=== PATIENT | male | born 1975 | race Caucasian/White ===

== ENCOUNTER 2016-10-03 02:56 | Inpatient (IN) | payer MEDICAID, OTHER ==
[~2016-10-03] VITALS: Ht 172.7 cm; Wt 76.1 kg
[2016-10-03] MEDS ORDERED: CEFTRIAXONE 1 GM/50 ML (PMX) 50 ML IVPB STA (02:57)
[2016-10-03] MEDS ORDERED: PANTOPRAZOLE IV 80 MG in SOD CHLORIDE 0.9% 100 ML IV STA (02:57)
[2016-10-03] MEDS ORDERED: ONDANSETRON INJ 8 MG in DEXTROSE 5% 50 ML IVPB STA (02:57)
[2016-10-03] MEDS ORDERED: SOD CHLORIDE 0.9% 1,000 ML IV STA (02:57)
[2016-10-03] MEDS ORDERED: OCTREOTIDE 50 MCG in SOD CHLORIDE 0.9% 25 ML IVPB STA (02:57)
[2016-10-03] MEDS ORDERED: PANTOPRAZOLE IV 80 MG in SOD CHLORIDE 0.9% 100 ML IVPB STA (02:57)
[2016-10-03] MEDS ORDERED: OCTREOTIDE 500 MCG in SOD CHLORIDE 0.9% 49 ML IV STA (02:57)
[2016-10-03] MEDS ORDERED: LORAZEPAM 2 MG INJ ONE (03:13)
[2016-10-03 03:23] LABS: ADD SCAN DIFF NO
[2016-10-03 03:25] LABS: BASOPHIL # 0.1 10^3/ul (0.0-0.1); BASOPHILS % 0.6 % (0.0-2.0); EOSINOPHILS % 0.2 % (0.0-7.0); LYMPHOCYTES # 3.9 10^3/ul (0.8-2.9); LYMPHOCYTES % 36.2 % (15.0-51.0); MEAN CORPUSCULAR HEMOGLOBIN 28.6 pg (29.0-33.0); MEAN CORPUSCULAR HGB CONC 34.3 g/dl (32.0-37.0); MEAN CORPUSCULAR VOLUME 83.3 fl (82.0-101.0); MEAN PLATELET VOLUME 9.6 fl (7.4-10.4); MONOCYTE # 0.6 10^3/ul (0.3-0.9); MONOCYTES % 5.6 % (0.0-11.0); NEUTROPHIL # 6.1 10^3/ul (1.6-7.5); NEUTROPHILS % 57.1 % (39.0-77.0); PLATELET COUNT 193 10^3/UL (140-415); RED CELL DISTRIBUTION WIDTH 20.2 % (11.5-14.5); WHITE BLOOD COUNT 10.6 10^3/ul (4.8-10.8)
[2016-10-03] MEDS ORDERED: LORAZEPAM 2 MG INJ IV ONE ×2 (03:30)
[2016-10-03 03:42] LABS: INR 1.01; PROTIME 13.3 Sec (12.2-14.2)
[2016-10-03 03:47] LABS: ALANINE AMINOTRANSFERASE 29 IU/L (13-69); ALBUMIN 4.3 g/dl (3.3-4.9); ALBUMIN/GLOBULIN RATIO 1.26; ALKALINE PHOSPHATASE 96 IU/L (42-121); ANION GAP 30 (8-16); ASPARTATE AMINO TRANSFERASE 51 IU/L (15-46); BILIRUBIN,INDIRECT 0.4 mg/dl (0-1.1); BILIRUBIN,TOTAL 0.4 mg/dl (0.2-1.3); BLOOD UREA NITROGEN 14 mg/dl (7-20); CALCIUM 8.6 mg/dl (8.4-10.2); CARBON DIOXIDE 19 mmol/L (21-31); CHLORIDE 98 mmol/L (97-110); CREATININE 0.83 mg/dl (0.61-1.24); GLUCOSE 123 mg/dl (70-220); POTASSIUM 3.4 mmol/L (3.5-5.1); SODIUM 144 mmol/L (135-144); TOTAL PROTEIN 7.7 g/dl (6.1-8.1)
[2016-10-03 03:59] LABS: TROPONIN-I < 0.012 ng/ml (0.00-0.12)
[2016-10-03 04:42] LABS: PARTIAL THROMBOPLASTIN TIME 28.7 Sec (25.0-35.0)
--- NOTE | 2016-10-03 04:46 | RADRPT ---
PROCEDURE: Chest. CLINICAL INDICATION: Chest pain. TECHNIQUE: Single frontal view of the chest was obtained. COMPARISON: None. FINDINGS: The cardiac silhouette is within normal limits. The aortic arch is unremarkable. There is no focal consolidation, vascular congestion or pleural effusion. There is no pneumothorax. IMPRESSION: No evidence for active cardiopulmonary disease. .Jessee Pereira MD, MD Date Time Electronically viewed and signed by .Jessee Pereira MD, on 10/03/2016 04:46 .T/
--- NOTE | 2016-10-03 05:46 | ERA ---
ER Documentation Chief Complaint Date/Time DATE: 10/03/16 TIME: 05:42 Chief Complaint bloody emesis x "all day", pt states heavy alcoholic and last drink 2200 HPI vomitting blood today.admiyts to ETOH use and previous variceal bleeding ROS All systems reviewed and are negative except as per history of present illness. Medications Home Meds No Active Prescriptions or Reported Meds Allergies Allergies: Coded Allergies: No Known Allergy (Unverified , 10/03/16) PMhx/Soc Medical and Surgical Hx: pt denies Surgical Hx History of Surgery: No Anesthesia Reaction: No Hx Neurological Disorder: No Hx Respiratory Disorders: No Hx Cardiac Disorders: No Hx Psychiatric Problems: Yes (anxiety) Hx Miscellaneous Medical Probl: No Hx Alcohol Use: Yes Hx Substance Use: Yes (marijuana) Hx Tobacco Use: Yes Smoking Status: Current every day smoker Physical Exam Vitals Vital Signs Date Time Temp Pulse Resp B/P Pulse Ox O2 Delivery O2 Flow Rate FiO2 10/03/16 04:46 86 13 115/60 99 Nasal Cannula 2.0 10/03/16 04:00 75 17 118/73 100 Nasal Cannula 2.0 10/03/16 03:48 Nasal Cannula 2 10/03/16 03:48 81 12 116/75 100 Nasal Cannula 2.0 10/03/16 03:11 98.3 89 26 145/101 100 Physical Exam Const: [] Head: Atraumatic Eyes: Normal Conjunctiva ENT: Normal External Ears, Nose and Mouth. Neck: Full range of motion..~ No meningismus. Resp: Clear to auscultation bilaterally Cardio: Regular rate and rhythm, no murmurs Abd: Soft, non tender, non distended. Normal bowel sounds Skin: No petechiae or rashes Back: No midline or flank tenderness Ext: No cyanosis, or edema Neur: Awake and alert Psych: Normal Mood and Affect Result Diagram: 10/03/16 0310 10/03/16 0310 Results 24 hrs Laboratory Tests Test 10/03/16 03:10 White Blood Count 10.610^3/ul Red Blood Count 4.2010^6/ul Hemoglobin 12.0g/dl Hematocrit 35.0% Mean Corpuscular Volume 83.3fl Mean Corpuscular Hemoglobin 28.6pg Mean Corpuscular Hemoglobin Concent 34.3g/dl Red Cell Distribution Width 20.2% Platelet Count 21360^3/UL Mean Platelet Volume 9.6fl Neutrophils % 57.1% Lymphocytes % 36.2% Monocytes % 5.6% Eosinophils % 0.2% Basophils % 0.6% Nucleated Red Blood Cells % 0.0/100WBC Neutrophils # 6.110^3/ul Lymphocytes # 3.910^3/ul Monocytes # 0.610^3/ul Eosinophils # 0.010^3/ul Basophils # 0.110^3/ul Nucleated Red Blood Cells # 0.010^3/ul Prothrombin Time 13.3Sec Prothrombin Time Ratio 1.0 INR International Normalized Ratio 1.01 Activated Partial Thromboplast Time 28.7Sec Sodium Level 144mmol/L Potassium Level 3.4mmol/L Chloride Level 98mmol/L Carbon Dioxide Level 19mmol/L Anion Gap 30 Blood Urea Nitrogen 14mg/dl Creatinine 0.83mg/dl Glucose Level 123mg/dl Calcium Level 8.6mg/dl Total Bilirubin 0.4mg/dl Direct Bilirubin 0.00mg/dl Indirect Bilirubin 0.4mg/dl Aspartate Amino Transf (AST/SGOT) 51IU/L Alanine Aminotransferase (ALT/SGPT) 29IU/L Alkaline Phosphatase 96IU/L Troponin I < 0.012ng/ml Total Protein 7.7g/dl Albumin 4.3g/dl Globulin 3.40g/dl Albumin/Globulin Ratio 1.26 Lipase 395U/L Current Medications Medications (Trade) Dose Ordered Sig/Benita Route PRN Reason Start Time Stop Time Status Last Admin Dose Admin Sodium Chloride 1,000 ml @ 1,000 mls/hr Q1H STAT IV 10/03/16 02:57 10/03/16 03:56 DC 10/03/16 03:18 Pantoprazole 80 mg/Sodium Chloride 100 ml @ 400 mls/hr ONCE STAT IVPB 10/03/16 02:57 10/03/16 03:11 DC 10/03/16 03:43 Pantoprazole 80 mg/Sodium Chloride 100 ml @ 10 mls/hr ONCE STAT IV 10/03/16 02:57 10/03/16 12:56 10/03/16 04:01 Octreotide Acetate 50 mcg/ Sodium Chloride 26 ml @ 100 mls/hr Q16M STAT IVPB 10/03/16 02:57 10/03/16 03:12 DC 10/03/16 04:00 Octreotide Acetate 500 mcg/ Sodium Chloride 50 ml @ 5 mls/hr ONCE STAT IV 10/03/16 02:57 10/03/16 12:56 10/03/16 04:17 Ondansetron HCl 8 mg/Dextrose 54 ml @ 200 mls/hr ONCE STAT IVPB 10/03/16 02:57 10/03/16 03:13 DC 10/03/16 03:38 Ceftriaxone Sodium (Rocephin) 50 ml @ 100 mls/hr ONCE STAT IVPB 10/03/16 02:57 10/03/16 03:26 DC 10/03/16 03:39 Lorazepam (Ativan) 1 mg ONCE ONCE IV 10/03/16 03:30 10/03/16 03:31 DC 10/03/16 03:18 Lorazepam (Ativan) 2 mg STK-MED ONCE .ROUTE 10/03/16 03:13 10/03/16 03:14 DC Lorazepam (Ativan) 1 mg ONCE ONCE IV 10/03/16 03:30 10/03/16 03:31 DC 10/03/16 03:18 Procedures/MDM EKG: Rate/Rhythm: [Normal Sinus Rhythm] QRS, ST, T-waves: [No changes consistent w/ acute ischemia] Impression: [No evidence of ischemia or arrhythmia] Chest X-ray 1V Interpreted by me: Soft Tissue: No acute abnormalities Bones: No acute abnormalities Mediastinum/Cardiac Silhouette/Lungs: [No acute abnormalities] Medical decision-makin-year-old male hematemesis likely secondary to variceal bleeding. Start Protonix and octreotide drip. At this point clinically stable for outpatient management. Admitted to telemetry Departure Diagnosis: Primary Impression: Hematemesis Qualified Code: K92.0 - Hematemesis with nausea Condition: Serious CELENA FULLER Oct 03, 2016 05:46
[2016-10-03] MEDS ORDERED: morphine 2 MG INJ IV PRN (07:30)
[2016-10-03] MEDS ORDERED: NACL 0.9% 3 ML SYG IV SCH (07:30)
[2016-10-03] MEDS: PANTOPRAZOLE 40 MG INJ IV SCH ×2 (09:00→20:14)
[2016-10-03] MEDS: DEXTROSE 5%-0.45% NACL 1,000 ML IV SCH ×2 (12:13→23:07)
[2016-10-03] MEDS: LORAZEPAM 2 MG INJ IV PRN ×5 (13:22→22:59)
--- NOTE | 2016-10-03 16:23 | PN ---
Date/Time of Note Date/Time of Note DATE: 10/03/16 TIME: 16:20 Assessment/Plan VTE Prophylaxis VTE Prophylaxis Intervention: SCD's Assessment/Plan Chief Complaint/Hosp Course Assessment and plan 1. Hematemesis. Likely secondary to alcohol abuse. Patient on octreotide as well as Protonix. N.p.o. for now. Explosives Operator consulted. Follow up with recommendations. Placed on Ativan as needed for DT and placed on banana bag 2. Alcohol abuse. Cessation was advised. Will get director social to follow. 3. Anemia secondary to #1. Will monitor H&H and transfuse PRBC as needed 4. Hypokalemia. Monitor and replete as needed 5. Home status. Will get director social to follow. Discussed plan of care with Dr. Warren Problems: Subjective 24 Hr Interval Summary Free Text/Dictation No further reports of hematemesis. No reports of hemoptysis. Exam/Review of Systems Vital Signs Vitals Vital Signs Date Time Temp Pulse Resp B/P Pulse Ox O2 Delivery O2 Flow Rate FiO2 10/03/16 16:00 65 22 110/69 100 Nasal Cannula 2.0 10/03/16 14:00 97.7 Exam Constitutional: alert, oriented Psych: No anxiety Head: normocephalic Respiratory: clear to auscultation Cardiovascular: regular rate and rhythm Gastrointestinal: non-tender, soft Musculoskeletal: nl extremities to inspection Neurological: BATTERYMAN II-XII intact, nl mental status, nl speech Results Result Diagram: 10/03/16 0310 10/03/16 0310 Results 24 hrs Laboratory Tests Test 10/03/16 03:10 White Blood Count 10.6 Red Blood Count 4.20 L Hemoglobin 12.0 L Hematocrit 35.0 L Mean Corpuscular Volume 83.3 Mean Corpuscular Hemoglobin 28.6 L Mean Corpuscular Hemoglobin Concent 34.3 Red Cell Distribution Width 20.2 H Platelet Count 193 Mean Platelet Volume 9.6 Neutrophils % 57.1 Lymphocytes % 36.2 Monocytes % 5.6 Eosinophils % 0.2 Basophils % 0.6 Nucleated Red Blood Cells % 0.0 Neutrophils # 6.1 Lymphocytes # 3.9 H Monocytes # 0.6 Eosinophils # 0.0 Basophils # 0.1 Nucleated Red Blood Cells # 0.0 Prothrombin Time 13.3 Prothrombin Time Ratio 1.0 INR International Normalized Ratio 1.01 Activated Partial Thromboplast Time 28.7 Sodium Level 144 Potassium Level 3.4 L Chloride Level 98 Carbon Dioxide Level 19 L Anion Gap 30 H Blood Urea Nitrogen 14 Creatinine 0.83 Glucose Level 123 Calcium Level 8.6 Total Bilirubin 0.4 Direct Bilirubin 0.00 Indirect Bilirubin 0.4 Aspartate Amino Transf (AST/SGOT) 51 H Alanine Aminotransferase (ALT/SGPT) 29 Alkaline Phosphatase 96 Troponin I < 0.012 Total Protein 7.7 Albumin 4.3 Globulin 3.40 H Albumin/Globulin Ratio 1.26 Lipase 395 H Medications Medications Current Medications Dextrose/Sodium Chloride (D5-1/2ns) 1,000 ml @ 100 mls/hr Q10H IV Last administered on 10/03/16 12:13; Admin Dose 100 MLS/HR; Start 10/03/16 at 07:10 Morphine Sulfate (morphine) 2 mg Q4H PRN IV SEVERE PAIN LEVEL 7-10; Start 10/03 at 07:30 Pantoprazole (Protonix Iv) 40 mg 18 IV ; Start 10/03/16 at 09:00 Lorazepam 1 mg 1 mg Q1H PRN IV anxiety Last administered on 10/03/16 14:44; Admin Dose 1 MG; Start 10/03/16 at 07:30 Multivitamins/ Thiamine HCl/ Folic Acid/Sodium Chloride (Mvi Adult/ Vitamin B1/ Folic Acid/NS) 1,011.2 ml @ 125 mls/ hr DAILY@09 IVPB ; Start 10/04/16 at 09:00 MYESHA PEREZ Oct 03, 2016 16:23
[2016-10-03 16:48] LABS: ADD UMIC NO; UR ASCORBIC ACID 20 mg/dL (NEGATIVE); UR BILIRUBIN (Dip) NEGATIVE (NEGATIVE); UR BLOOD (Dip) NEGATIVE (NEGATIVE); UR CLARITY CLEAR (CLEAR); UR COLOR YELLOW (YELLOW); UR GLUCOSE (Dip) NEGATIVE (NEGATIVE); UR KETONES (Dip) 2+ mg/dL (NEGATIVE); UR LEUKOCYTE ESTERASE (Dip) NEGATIVE Leu/ul (NEGATIVE); UR NITRITE (Dip) NEGATIVE (NEGATIVE); UR SPECIFIC GRAVITY (Dip) 1.017 (1.003-1.030); UR TOTAL PROTEIN (Dip) NEGATIVE (NEGATIVE); UR UROBILINOGEN (Dip) NEGATIVE (NEGATIVE)
--- NOTE | 2016-10-03 17:03 | CONS ---
Date/Time of Note Date/Time of Note DATE: 10/03/16 TIME: 16:53 Assessment/Plan Assessment/Plan Additional Assessment/Plan Assessment * Hematemesis Bleeding esophageal varices vs peptic ulcer disease * Chronic alcoholism Plan * EGD tomorrow risks and benefit explained to patient and agreed with the planned procedure * PPI 40 mg BID * continue present management * monitor hemoglobin and hematocrit Q 6 and transfuse per protocol Consultation Date/Type/Reason Admit Date/Time Date of Consultation: Oct 03, 2016 Type of Consultation: Gastroenterology Reason for Consultation hematemesis Referring Provider: MYESHA PEREZ Hx of Present Illness 41 year old male who came to emergency room because of hematemesis.Patient had been drinking vodka heavily for the past 2 weeks when he had hematemesis x 2 about 15 ml per episode.He denies any abdominal pain,hematochezia,chest pain nor shortness of breath Hematemesis prompted consult at the ER,Hemoglobin revealed 12 and hematocrit of 35,Chest x ray No evidence for active cardiopulmonary disease..AST 51,ALT 29.alkaline phosphatase 96,troponin < 0.012.Lipase 395 Presently patient denies any hematemesis nor abdominal pain Constitutional: improved, no complaints Eyes: no complaints ENT: no complaints Respiratory: no complaints Cardiovascular: no complaints Gastrointestinal: blood Genitourinary: no complaints Musculoskeletal: no complaints Skin: no complaints Neurologic: no complaints Endocrine: no complaints Lymphatic: no complaints Psychological: No anxiety Immunologic: no complaints Past Medical History Medical History: no pertinent history Past Surgical History Past Surgical Hx: no surgical history Social History Alcohol Use: heavy Smoking Status: Current every day smoker Exam/Review of Systems Vital Signs Vitals Vital Signs Date Time Temp Pulse Resp B/P Pulse Ox O2 Delivery O2 Flow Rate FiO2 10/03/16 16:00 65 22 110/69 100 Nasal Cannula 2.0 10/03/16 14:00 97.7 Exam Constitutional: alert, oriented, well developed Psych: nl mood/affect, no complaints Head: atraumatic, normocephalic Eyes: EOMI, PERRL, nl conjunctiva, nl lids, nl sclera ENMT: nl external ears & nose, nl lips & teeth, nl nasal mucosa & septum Neck: non-tender, supple Respiratory: clear to auscultation, normal air movement Cardiovascular: nl pulses, regular rate and rhythm Gastrointestinal: nl liver, spleen, non-tender, soft Musculoskeletal: nl extremities to inspection, nl gait and stance Extremities: normal pulses Neurological: nl mental status, nl speech, nl strength Skin: nl turgor, No rash or lesions Lymph: nl lymph nodes Results Result Diagram: 10/03/16 0310 10/03/16 0310 Results 24 hrs Laboratory Tests Test 10/03/16 03:10 10/03/16 16:30 White Blood Count 10.6 Red Blood Count 4.20 L Hemoglobin 12.0 L Hematocrit 35.0 L Mean Corpuscular Volume 83.3 Mean Corpuscular Hemoglobin 28.6 L Mean Corpuscular Hemoglobin Concent 34.3 Red Cell Distribution Width 20.2 H Platelet Count 193 Mean Platelet Volume 9.6 Neutrophils % 57.1 Lymphocytes % 36.2 Monocytes % 5.6 Eosinophils % 0.2 Basophils % 0.6 Nucleated Red Blood Cells % 0.0 Neutrophils # 6.1 Lymphocytes # 3.9 H Monocytes # 0.6 Eosinophils # 0.0 Basophils # 0.1 Nucleated Red Blood Cells # 0.0 Prothrombin Time 13.3 Prothrombin Time Ratio 1.0 INR International Normalized Ratio 1.01 Activated Partial Thromboplast Time 28.7 Sodium Level 144 Potassium Level 3.4 L Chloride Level 98 Carbon Dioxide Level 19 L Anion Gap 30 H Blood Urea Nitrogen 14 Creatinine 0.83 Glucose Level 123 Calcium Level 8.6 Total Bilirubin 0.4 Direct Bilirubin 0.00 Indirect Bilirubin 0.4 Aspartate Amino Transf (AST/SGOT) 51 H Alanine Aminotransferase (ALT/SGPT) 29 Alkaline Phosphatase 96 Troponin I < 0.012 Total Protein 7.7 Albumin 4.3 Globulin 3.40 H Albumin/Globulin Ratio 1.26 Lipase 395 H Urine Color YELLOW Urine Clarity CLEAR Urine pH 6.0 Urine Specific [place] 1.017 Urine Ketones 2+ H Urine Nitrite NEGATIVE Urine Bilirubin NEGATIVE Urine Urobilinogen NEGATIVE Urine Leukocyte Esterase NEGATIVE Urine Hemoglobin NEGATIVE Urine Glucose NEGATIVE Urine Total Protein NEGATIVE Medications Medications Current Medications Dextrose/Sodium Chloride (D5-1/2ns) 1,000 ml @ 100 mls/hr Q10H IV Last administered on 10/03/16t 12:13; Admin Dose 100 MLS/HR; Start 10/03/16 at 07:10 Morphine Sulfate (morphine) 2 mg Q4H PRN IV SEVERE PAIN LEVEL 7-10; Start 10/03 at 07:30 Pantoprazole (Protonix Iv) 40 mg IV ; Start 10/03/16 at 09:00 Lorazepam 1 mg 1 mg Q1H PRN IV anxiety Last administered on 10/03/16t 16:35; Admin Dose 1 MG; Start 10/03/16 at 07:30 Multivitamins/ Thiamine HCl/ Folic Acid/Sodium Chloride (Mvi Adult/ Vitamin B1/ Folic Acid/NS) 1,011.2 ml @ 125 mls/ hr DAILY@09 IVPB ; Start 10/04/16 at 09:00 AYANNA KING MD Oct 03, 2016 17:03
[2016-10-03 18:47] VITALS: TEMP 98.9
[2016-10-03 19:39] VITALS: BMI 23.1
[2016-10-03 22:29] VITALS: PULSE 50
[2016-10-03 23:00] VITALS: Ht 172.7 cm; Wt 76.1 kg
[2016-10-03 23:35] VITALS: BP 117/63; RESP 18
[2016-10-04] VITALS (13 sets, daily range): BP systolic 100–150; BP diastolic 59–71; PULSE 40–112; RESP 12–20
[2016-10-04] MEDS: DEXTROSE 5%-0.45% NACL 1,000 ML IV SCH ×3 (03:10→22:55)
[2016-10-04] MEDS: PANTOPRAZOLE 40 MG INJ IV SCH ×2 (05:53→17:13)
[2016-10-04 07:42] LABS: ADD SCAN DIFF NO
[2016-10-04 07:43] LABS: BASOPHILS % 0.4 % (0.0-2.0); EOSINOPHILS # 0.1 10^3/ul (0.0-0.5); EOSINOPHILS % 2.6 % (0.0-7.0); HEMATOCRIT 32.2 % (42.0-52.0); HEMOGLOBIN 10.6 g/dl (14.0-18.0); MEAN CORPUSCULAR HEMOGLOBIN 28.2 pg (29.0-33.0); MEAN CORPUSCULAR HGB CONC 32.9 g/dl (32.0-37.0); MEAN CORPUSCULAR VOLUME 85.6 fl (82.0-101.0); MEAN PLATELET VOLUME 10.5 fl (7.4-10.4); MONOCYTE # 0.4 10^3/ul (0.3-0.9); MONOCYTES % 7.5 % (0.0-11.0); NEUTROPHIL # 3.2 10^3/ul (1.6-7.5); NEUTROPHILS % 68.3 % (39.0-77.0); PLATELET COUNT 134 10^3/UL (140-415); RED BLOOD COUNT 3.76 10^6/ul (4.70-6.10); RED CELL DISTRIBUTION WIDTH 19.9 % (11.5-14.5); WHITE BLOOD COUNT 4.7 10^3/ul (4.8-10.8)
[2016-10-04 08:03] LABS: ALBUMIN 3.3 g/dl (3.3-4.9); ALBUMIN/GLOBULIN RATIO 1.1; BILIRUBIN,INDIRECT 1.5 mg/dl (0-1.1); BILIRUBIN,TOTAL 1.5 mg/dl (0.2-1.3); CALCIUM 8.7 mg/dl (8.4-10.2); CREATININE 0.74 mg/dl (0.61-1.24); MAGNESIUM 1.7 mg/dl (1.7-2.5); PHOSPHORUS 2.8 mg/dl (2.5-4.9); POTASSIUM 3.6 mmol/L (3.5-5.1); TOTAL PROTEIN 6.3 g/dl (6.1-8.1)
--- NOTE | 2016-10-04 08:25 | HP ---
DATE OF ADMISSION: 10/03/2016 TIME SEEN: 7:00 a.m. CHIEF COMPLAINT: Vomiting blood. HISTORY OF PRESENT ILLNESS: The patient is a 41-year-old male with a history of anxiety who presented to the emergency department complaining of vomiting blood. The patient stated that he has been vomiting half a galloon to galloons of blood every day for the past few days and that he has been feeling anxious. His history is somehow limited because he has been yelling and has been uncooperative at times, even though at times he remains calm and seems to be answering questions appropriately. He denies any chest pain, shortness of breath. When asked about whether or not he has been drinking, he does not want to answer. When he presented to the ER his vitals were stable. Laboratory value shows hemoglobin of 12, potassium 3.4, bicarb 19, anion gap 30, and lipase of 395, otherwise the CBC and CMP were within acceptable range. A chest x-ray was done which shows no evidence of acute cardiopulmonary disease. He was given a few low doses of Ativan, IV fluids and has been started on Octreotide and Protonix. It seems like he has also received a dose of Rocephin while in the ER. REVIEW OF SYSTEMS: Review of systems all negative except for as in the HPI. PAST MEDICAL HISTORY: As per HPI. SOCIAL HISTORY: He did report of smoking marijuana and occasionally drinking but he was hesitant when answering about his drinking. ALLERGIES: NO KNOWN DRUG ALLERGIES. MEDICATIONS: None. PHYSICAL EXAMINATION: VITAL SIGNS: Stable. GENERAL: The patient seems anxious and at times he has been yelling but at times he has been answering questions and has been calm. HEENT: Normocephalic, atraumatic. Extraocular muscles are intact. CARDIAC: Regular rate and rhythm. LUNGS: Lung sounds are clear. ABDOMEN: Soft, nontender, nondistended. Positive bowel sounds. EXTREMITIES: No edema. NEUROLOGIC: No focal deficits. DATA: Per positives are referenced in the HPI. IMAGING: Chest x-ray: No acute disease. IMPRESSION: 1. Reported upper gastrointestinal bleed. 2. Mild anemia, possibly secondary to gastrointestinal bleed given history. 3. Anxiety. 4. Mild anion gap metabolic acidosis. 5. Mild pancreatitis, with elevated lipase. PLAN: Will keep n.p.o. He will be continued with Protonix. I will place him on Ativan. Will place a GI consult. Will monitor his hemoglobin closely. If there is any sign of alcohol withdrawal symptom, will start him on a banana bag and also Librium when he is no longer n.p.o. Will correct electrolytes as needed. Further recommendations and management per Dictated By: Thierno Baptiste MD /wilman/parrish /Document#: [id number]
[2016-10-04] MEDS: LORAZEPAM 2 MG INJ IV PRN ×3 (08:38→21:08)
[2016-10-04] MEDS: MULTIVITAMINS 10 ML, THIAMINE 100 MG, FOLIC ACID 1 MG in SOD CHLORIDE 0.9% 1,000 ML IVPB SCH (10:59)
--- NOTE | 2016-10-04 15:44 | PN ---
Date/Time of Note Date/Time of Note DATE: 10/04/16 TIME: 15:38 Assessment/Plan VTE Prophylaxis VTE Prophylaxis Intervention: SCD's Lines/Catheters IV Catheter Type (from Nrs): Peripheral IV Assessment/Plan Chief Complaint/Hosp Course Assessment and plan 1. Hematemesis. Patient for EGD. Continue Protonix. 2. Alcohol abuse. Cessation was advised. motion picture set worker to follow 3. Anemia secondary to #1. Will monitor H&H and transfuse PRBC as needed 4. Hypokalemia. Monitor and replete as needed 5. Home status. Will get social services coordinator to follow. DISPO/PLAN: patient for EGD. follow up result. cont benzodiazepine for DT Discussed plan of care with Dr. Warren Problems: Subjective 24 Hr Interval Summary Free Text/Dictation Patient for EGD Exam/Review of Systems Vital Signs Vitals Vital Signs Date Time Temp Pulse Resp B/P Pulse Ox O2 Delivery O2 Flow Rate FiO2 10/04/16 12:41 62 10/04/16 11:49 98.2 20 100/59 97 10/03/16 18:47 Room Air Nasal Cannula 10/03/16 16:00 2.0 Intake and Output 10/03/16 10/03/16 10/04/16 14:59 22:59 06:59 Intake Total 150 ml 120 ml Balance 150 ml 120 ml Exam Patient for EGD Results Result Diagram: 10/04/1618 10/04/1618 Results 24 hrs Laboratory Tests Test 10/03/16 16:30 10/04/16 07:18 Urine Color YELLOW Urine Clarity CLEAR Urine pH 6.0 Urine Specific [place] 1.017 Urine Ketones 2+ H Urine Nitrite NEGATIVE Urine Bilirubin NEGATIVE Urine Urobilinogen NEGATIVE Urine Leukocyte Esterase NEGATIVE Urine Hemoglobin NEGATIVE Urine Glucose NEGATIVE Urine Total Protein NEGATIVE White Blood Count 4.7 #L Red Blood Count 3.76 L Hemoglobin 10.6 L Hematocrit 32.2 L Mean Corpuscular Volume 85.6 Mean Corpuscular Hemoglobin 28.2 L Mean Corpuscular Hemoglobin Concent 32.9 Red Cell Distribution Width 19.9 H Platelet Count 134 #L Mean Platelet Volume 10.5 H Neutrophils % 68.3 Lymphocytes % 21.0 Monocytes % 7.5 Eosinophils % 2.6 Basophils % 0.4 Nucleated Red Blood Cells % 0.0 Neutrophils # 3.2 Lymphocytes # 1.0 Monocytes # 0.4 Eosinophils # 0.1 Basophils # 0.0 Nucleated Red Blood Cells # 0.0 Sodium Level 137 Potassium Level 3.6 Chloride Level 96 L Carbon Dioxide Level 29 # Anion Gap 16 # Blood Urea Nitrogen 14 Creatinine 0.74 Glucose Level 111 Calcium Level 8.7 Phosphorus Level 2.8 Magnesium Level 1.7 Total Bilirubin 1.5 H Direct Bilirubin 0.00 Indirect Bilirubin 1.5 H Aspartate Amino Transf (AST/SGOT) 50 H Alanine Aminotransferase (ALT/SGPT) 31 Alkaline Phosphatase 70 Total Protein 6.3 # Albumin 3.3 # Globulin 3.00 Albumin/Globulin Ratio 1.10 Medications Medications Current Medications Dextrose/Sodium Chloride (D5-1/2ns) 1,000 ml @ 100 mls/hr Q10H IV Last administered on 10/04/16 08:38; Admin Dose 100 MLS/HR; Start 10/03/16 at 07:10 Morphine Sulfate (morphine) 2 mg Q4H PRN IV SEVERE PAIN LEVEL 7-10 Last administered on 10/04/16 11:54; Admin Dose 2 MG; Start 10/03/16 at 07:30 Pantoprazole (Protonix Iv) 40 mg 0618 IV Last administered on 10/04/16 05:53 ; Admin Dose 40 MG; Start 10/03/16 at 09:00 Lorazepam 1 mg 1 mg Q1H PRN IV anxiety Last administered on 10/04/16 11:54; Admin Dose 1 MG; Start 10/03/16 at 07:30 Multivitamins/ Thiamine HCl/ Folic Acid/Sodium Chloride (Mvi Adult/ Vitamin B1/ Folic Acid/NS) 1,011.2 ml @ 125 mls/ hr DAILY@09 IVPB Last administered on 10:59; Admin Dose 125 MLS/HR; Start 10/04/16 at 09:00 MYESHA PEREZ Oct 04, 2016 15:44
[2016-10-04] MEDS ORDERED: FAMOTIDINE 20 MG INJ ONE (16:01)
[2016-10-04] MEDS ORDERED: METOCLOPRAMIDE 10 MG INJ ONE (16:01)
[2016-10-04] MEDS ORDERED: LIDOCAINE 2% (SDV) 5 ML INJ ONE (16:27)
[2016-10-04] MEDS ORDERED: PROPOFOL 20 ML ONE (16:27)
[2016-10-04] MEDS ORDERED: METOCLOPRAMIDE 10 MG INJ IV PRN (17:00)
[2016-10-04] MEDS ORDERED: MAGNESIUM HYDROXIDE 30ML CUP PO PRN (20:00)
[2016-10-04] MEDS ORDERED: MAGNESIUM HYDROXIDE 30ML CUP PO ONE (20:00)
[2016-10-05] VITALS (12 sets, daily range): BP systolic 103–133; BP diastolic 57–62; PULSE 50–68; RESP 17–19
[2016-10-05] MEDS: PANTOPRAZOLE 40 MG INJ IV SCH ×2 (05:08→17:13)
[2016-10-05] MEDS: LORAZEPAM 2 MG INJ IV PRN ×3 (05:14→17:13)
[2016-10-05 07:19] LABS: ADD SCAN DIFF NO
[2016-10-05 07:24] LABS: BASOPHILS % 0.5 % (0.0-2.0); EOSINOPHILS # 0.2 10^3/ul (0.0-0.5); EOSINOPHILS % 5.2 % (0.0-7.0); HEMATOCRIT 31.8 % (42.0-52.0); HEMOGLOBIN 10.4 g/dl (14.0-18.0); LYMPHOCYTES # 1.1 10^3/ul (0.8-2.9); LYMPHOCYTES % 30.5 % (15.0-51.0); MEAN CORPUSCULAR HEMOGLOBIN 28.3 pg (29.0-33.0); MEAN CORPUSCULAR HGB CONC 32.7 g/dl (32.0-37.0); MEAN CORPUSCULAR VOLUME 86.4 fl (82.0-101.0); MEAN PLATELET VOLUME 10.7 fl (7.4-10.4); MONOCYTE # 0.3 10^3/ul (0.3-0.9); MONOCYTES % 8.5 % (0.0-11.0); RED BLOOD COUNT 3.68 10^6/ul (4.70-6.10); RED CELL DISTRIBUTION WIDTH 19.5 % (11.5-14.5); WHITE BLOOD COUNT 3.6 10^3/ul (4.8-10.8)
[2016-10-05 07:57] LABS: CALCIUM 8.6 mg/dl (8.4-10.2); CREATININE 0.69 mg/dl (0.61-1.24); POTASSIUM 3.5 mmol/L (3.5-5.1)
[2016-10-05] MEDS: DEXTROSE 5%-0.45% NACL 1,000 ML IV SCH ×2 (08:47→17:10)
[2016-10-05] MEDS: SENNA TAB PO SCH (08:47)
[2016-10-05] MEDS: MULTIVITAMINS 10 ML, THIAMINE 100 MG, FOLIC ACID 1 MG in SOD CHLORIDE 0.9% 1,000 ML IVPB SCH (08:47)
[2016-10-05 11:29] LABS: PLATELET COUNT 111 10^3/UL (140-415)
--- NOTE | 2016-10-05 16:42 | PN ---
Date/Time of Note Date/Time of Note DATE: 10/05/16 TIME: 16:35 Assessment/Plan VTE Prophylaxis VTE Prophylaxis Intervention: SCD's Lines/Catheters IV [facility] Saline Lock Urinary Cath still in place: No Assessment/Plan Assessment/Plan Assessment * Hematemesis EGD esophageal ulcer gastritis Biopsy A-Gastric biopsy: -- Body mucosa showing no significant abnormalities. -- No Helicobacter organisms are identified in a Giemsa stain (positive control concurrently reviewed). -- There is no evidence of malignancy. B-Esophagus ulcer biopsy: -- Fragment of purulent exudate compatible with origin from an ulcer. -- Intact tissue fragments are not microscopically identified. -- No parasites or viral inclusions are seen. -- No fungal organisms are identified in an Alcian blue/PAS stain (positive control concurrently reviewed). COMMENT: Interpretation of the esophagus ulcer biopsy is limited due to the presence of only purulent exudate and the absence of intact ulcer base or esophageal mucosal tissue. * Chronic alcoholism Plan Pantoprazole 40 mg BID x 6 weeks stable for outpatient management case discussed with DR Lezama Subjective 24 Hr Interval Summary Free Text/Dictation * Course reviewed * EGD esophageal ulcer hiatal hernia gastritis R/O h Pylori * Biopsy A-Gastric biopsy: -- Body mucosa showing no significant abnormalities. -- No Helicobacter organisms are identified in a Giemsa stain (positive control concurrently reviewed). -- There is no evidence of malignancy. B-Esophagus ulcer biopsy: -- Fragment of purulent exudate compatible with origin from an ulcer. -- Intact tissue fragments are not microscopically identified. -- No parasites or viral inclusions are seen. -- No fungal organisms are identified in an Alcian blue/PAS stain (positive control concurrently reviewed). Exam/Review of Systems Vital Signs Vitals Vital Signs Date Time Temp Pulse Resp B/P Pulse Ox O2 Delivery O2 Flow Rate FiO2 10/05/16 16:02 98.3 77 18 133/61 98 10/04/16 17:02 Room Air 10/03/16 16:00 2.0 Intake and Output 10/04/16 10/04/16 10/05/16 15:00 23:00 07:00 Intake Total 1375 ml Balance 1375 ml Exam Constitutional: alert, oriented, well developed Psych: nl mood/affect, no complaints Head: atraumatic, normocephalic Eyes: PERRL, nl sclera ENMT: nl external ears & nose, nl lips & teeth, nl nasal mucosa & septum Neck: non-tender, supple Respiratory: clear to auscultation, normal air movement Cardiovascular: nl pulses, regular rate and rhythm Gastrointestinal: nl liver, spleen, non-tender, soft Musculoskeletal: nl extremities to inspection, nl gait and stance Extremities: normal pulses Neurological: nl speech, nl strength Skin: nl turgor, No rash or lesions Lymph: nl lymph nodes Results Result Diagram: 10/05/1663210/05/16 0633 Results 24 hrs Laboratory Tests Test 10/05/16 06:33 White Blood Count 3.6 #L Red Blood Count 3.68 L Hemoglobin 10.4 L Hematocrit 31.8 L Mean Corpuscular Volume 86.4 Mean Corpuscular Hemoglobin 28.3 L Mean Corpuscular Hemoglobin Concent 32.7 Red Cell Distribution Width 19.5 H Platelet Count 111 L Mean Platelet Volume 10.7 H Neutrophils % 55.0 Lymphocytes % 30.5 Monocytes % 8.5 Eosinophils % 5.2 Basophils % 0.5 Nucleated Red Blood Cells % 0.0 Neutrophils # 2.0 Lymphocytes # 1.1 Monocytes # 0.3 Eosinophils # 0.2 Basophils # 0.0 Nucleated Red Blood Cells # 0.0 Large Platelets OCCASIONAL Sodium Level 140 Potassium Level 3.5 Chloride Level 99 Carbon Dioxide Level 28 Anion Gap 17 H Blood Urea Nitrogen 8 Creatinine 0.69 Glucose Level 104 Calcium Level 8.6 Medications Medications Current Medications Dextrose/Sodium Chloride (D5-1/2ns) 1,000 ml @ 100 mls/hr Q10H IV Last administered on 10/04/16 22:55; Admin Dose 100 MLS/HR; Start 10/03/16 at 07:10 Morphine Sulfate (morphine) 2 mg Q4H PRN IV SEVERE PAIN LEVEL 7-10 Last administered on 10/04/16 11:54; Admin Dose 2 MG; Start 10/03/16 at 07:30 Pantoprazole (Protonix Iv) 40 mg IV Last administered on 10/05/16 05:08 ; Admin Dose 40 MG; Start 10/03/16 at 09:00 Lorazepam 1 mg 1 mg Q1H PRN IV anxiety Last administered on 10/05/16 08:51; Admin Dose 1 MG; Start 10/03/16 at 07:30 Multivitamins/ Thiamine HCl/ Folic Acid/Sodium Chloride (Mvi Adult/ Vitamin B1/ Folic Acid/NS) 1,011.2 ml @ 125 mls/ hr DAILY@09 IVPB Last administered on 10:59; Admin Dose 125 MLS/HR; Start 10/04/16 at 09:00 Metoclopramide HCl (Reglan) 10 mg Q6H PRN IV nausea; Start 10/04/16 at 17:00 Senna (Senokot) 2 tab DAILY PO Last administered on 10/05/16 08:47; Admin Dose 2 TAB; Start 10/05/16 at 09:00 Magnesium Hydroxide (Milk Of Mag) 30 ml BID PRN PO CONSTIPATION; Start at 20:00 JUSTIN GALARZA NP Oct 05, 2016 16:42
[2016-10-05] MEDS ORDERED: MULTI PO (17:03)
[2016-10-05] MEDS ORDERED: LORA0.5T PO (17:03)
[2016-10-05] MEDS ORDERED: FOLI-49 PO (17:03)
[2016-10-05] MEDS ORDERED: PANT40TA3 PO (17:03)
--- NOTE | 2016-10-05 17:08 | PDOCDIS ---
Discharge Instructions DIAGNOSIS Discharge Diagnosis 1. Hematemesis 2. Esophageal ulcer 3. Gastritis 4. Alcohol abuse 5. Anemia secondary to #1 6. Hypokalemia 7. Suspect, homeless status CONDITION Patient Condition: Stable HOME CARE INSTRUCTIONS: Special Diet: REGULAR FOLLOW UP/APPOINTMENTS Follow-up Plan 1. Follow up with Dr. Jerilyn Lezama in one week MYESHA PEREZ Oct 05, 2016 17:08
--- NOTE | 2016-10-05 17:16 | PN ---
Date/Time of Note Date/Time of Note DATE: 10/05/16 TIME: 17:14 Assessment/Plan VTE Prophylaxis VTE Prophylaxis Intervention: SCD's Lines/Catheters [facility] Saline Lock Urinary Cath still in place: No Assessment/Plan Chief Complaint/Hosp Course Assessment and plan 1. Hematemesis. Status post EGD with noted findings of esophageal ulcer and gastritis but no findings of malignancy or H. pylori. Continue PPI medications 2. Alcohol abuse. Cessation was advised. 3. Anemia secondary to #1. Will monitor H&H and transfuse PRBC as needed 4. Hypokalemia. Monitor and replete as needed 5. Homeless status. Tentative plan for boarding care. Follow-up with case management. DISPO/PLAN: Continue with PPI medication for gastric ulcer. Patient educated about alcohol cessation. Awaiting case management follow-up for placement. Discussed plan of care with Dr. Warren Problems: Subjective 24 Hr Interval Summary Free Text/Dictation No apparent distress noted. No further reports of hematemesis Exam/Review of Systems Vital Signs Vitals Vital Signs Date Time Temp Pulse Resp B/P Pulse Ox O2 Delivery O2 Flow Rate FiO2 10/05/16 16:50 65 10/05/16 16:02 98.3 18 133/61 98 10/04/16 17:02 Room Air 10/03/16 16:00 2.0 Intake and Output 10/04/16 10/04/16 10/05/16 15:00 23:00 07:00 Intake Total 1375 ml Balance 1375 ml Exam Constitutional: alert, oriented Head: normocephalic Respiratory: clear to auscultation Cardiovascular: regular rate and rhythm Gastrointestinal: non-tender, soft Extremities: normal pulses Neurological: GRAPE GROWER II-XII intact, nl mental status, nl speech Skin: nl turgor Results Result Diagram: 10/05/16 0633 10/05/16 0633 Results 24 hrs Laboratory Tests Test 10/05/16 06:33 White Blood Count 3.6 #L Red Blood Count 3.68 L Hemoglobin 10.4 L Hematocrit 31.8 L Mean Corpuscular Volume 86.4 Mean Corpuscular Hemoglobin 28.3 L Mean Corpuscular Hemoglobin Concent 32.7 Red Cell Distribution Width 19.5 H Platelet Count 111 L Mean Platelet Volume 10.7 H Neutrophils % 55.0 Lymphocytes % 30.5 Monocytes % 8.5 Eosinophils % 5.2 Basophils % 0.5 Nucleated Red Blood Cells % 0.0 Neutrophils # 2.0 Lymphocytes # 1.1 Monocytes # 0.3 Eosinophils # 0.2 Basophils # 0.0 Nucleated Red Blood Cells # 0.0 Large Platelets OCCASIONAL Sodium Level 140 Potassium Level 3.5 Chloride Level 99 Carbon Dioxide Level 28 Anion Gap 17 H Blood Urea Nitrogen 8 Creatinine 0.69 Glucose Level 104 Calcium Level 8.6 Medications Medications Current Medications Dextrose/Sodium Chloride (D5-1/2ns) 1,000 ml @ 100 mls/hr Q10H IV Last administered on 10/04/16 22:55; Admin Dose 100 MLS/HR; Start 10/03/16 at 07:10 Morphine Sulfate (morphine) 2 mg Q4H PRN IV SEVERE PAIN LEVEL 7-10 Last administered on 10/04/16 11:54; Admin Dose 2 MG; Start 10/03/16 at 07:30 Pantoprazole (Protonix Iv) 40 mg IV Last administered on 10/05/16 17:13 ; Admin Dose 40 MG; Start 10/03/16 at 09:00 Lorazepam 1 mg 1 mg Q1H PRN IV anxiety Last administered on 10/05/16 17:13; Admin Dose 1 MG; Start 10/03/16 at 07:30 Multivitamins/ Thiamine HCl/ Folic Acid/Sodium Chloride (Mvi Adult/ Vitamin B1/ Folic Acid/NS) 1,011.2 ml @ 125 mls/ hr DAILY@09 IVPB Last administered on 10:59; Admin Dose 125 MLS/HR; Start 10/04/16 at 09:00 Metoclopramide HCl (Reglan) 10 mg Q6H PRN IV nausea; Start 10/04/16 at 17:00 Senna (Senokot) 2 tab DAILY PO Last administered on 10/05/16 08:47; Admin Dose 2 TAB; Start 10/05/16 at 09:00 Magnesium Hydroxide (Milk Of Mag) 30 ml BID PRN PO CONSTIPATION; Start at 20:00 MYESHA PEREZ Oct 05, 2016 17:16
[2016-10-06] VITALS (9 sets, daily range): BP systolic 103–108; BP diastolic 56–67; PULSE 54–95; RESP 18
[2016-10-06] MEDS: LORAZEPAM 2 MG INJ IV PRN ×2 (00:40→10:36)
[2016-10-06] MEDS: DEXTROSE 5%-0.45% NACL 1,000 ML IV SCH ×2 (05:04→09:12)
[2016-10-06] MEDS: PANTOPRAZOLE 40 MG INJ IV SCH (05:08)
[2016-10-06 07:26] LABS: ADD SCAN DIFF NO
[2016-10-06 07:29] LABS: BASOPHILS % 0.7 % (0.0-2.0); EOSINOPHILS # 0.2 10^3/ul (0.0-0.5); EOSINOPHILS % 4.9 % (0.0-7.0); HEMATOCRIT 34.6 % (42.0-52.0); HEMOGLOBIN 11.4 g/dl (14.0-18.0); LYMPHOCYTES # 1.3 10^3/ul (0.8-2.9); LYMPHOCYTES % 31.1 % (15.0-51.0); MEAN CORPUSCULAR HEMOGLOBIN 28.6 pg (29.0-33.0); MEAN CORPUSCULAR HGB CONC 32.9 g/dl (32.0-37.0); MEAN CORPUSCULAR VOLUME 86.9 fl (82.0-101.0); MEAN PLATELET VOLUME 9.6 fl (7.4-10.4); MONOCYTE # 0.5 10^3/ul (0.3-0.9); MONOCYTES % 10.7 % (0.0-11.0); NEUTROPHIL # 2.2 10^3/ul (1.6-7.5); NEUTROPHILS % 52.4 % (39.0-77.0); PLATELET COUNT 114 10^3/UL (140-415); RED BLOOD COUNT 3.98 10^6/ul (4.70-6.10); RED CELL DISTRIBUTION WIDTH 19.4 % (11.5-14.5); WHITE BLOOD COUNT 4.3 10^3/ul (4.8-10.8)
[2016-10-06 07:59] LABS: CREATININE 0.66 mg/dl (0.61-1.24); POTASSIUM 3.8 mmol/L (3.5-5.1)
--- NOTE | 2016-10-06 08:56 | PN ---
Date/Time of Note Date/Time of Note DATE: 10/06/16 TIME: 08:54 Assessment/Plan VTE Prophylaxis VTE Prophylaxis Intervention: SCD's Lines/Catheters IV [facility] ([facility] Saline Lock Urinary Cath still in place: No Assessment/Plan Assessment/Plan Assessment * Hematemesis EGD esophageal ulcer gastritis Biopsy A-Gastric biopsy: -- Body mucosa showing no significant abnormalities. -- No Helicobacter organisms are identified in a Giemsa stain (positive control concurrently reviewed). -- There is no evidence of malignancy. B-Esophagus ulcer biopsy: -- Fragment of purulent exudate compatible with origin from an ulcer. -- Intact tissue fragments are not microscopically identified. -- No parasites or viral inclusions are seen. -- No fungal organisms are identified in an Alcian blue/PAS stain (positive control concurrently reviewed). COMMENT: Interpretation of the esophagus ulcer biopsy is limited due to the presence of only purulent exudate and the absence of intact ulcer base or esophageal mucosal tissue. * Chronic alcoholism Plan Pantoprazole 40 mg BID x 6 weeks stable for outpatient management case discussed with DR Lezama Subjective 24 Hr Interval Summary Free Text/Dictation * Course reviewed with RN * Patient seen and examined * No untoward events overnight Exam/Review of Systems Vital Signs Vitals Vital Signs Date Time Temp Pulse Resp B/P Pulse Ox O2 Delivery O2 Flow Rate FiO2 10/06/16 07:50 98.1 77 18 106/57 100 10/04/16 17:02 Room Air 10/03/16 16:00 2.0 Intake and Output 10/05/16 10/05/16 10/06/16 15:00 23:00 07:00 Intake Total 1000 ml 300 ml Balance 1000 ml 300 ml Exam Constitutional: alert, oriented Head: normocephalic Neck: non-tender, supple Respiratory: clear to auscultation, normal air movement Cardiovascular: nl pulses, regular rate and rhythm Gastrointestinal: nl liver, spleen, non-tender, soft Musculoskeletal: nl extremities to inspection, nl gait and stance Extremities: normal pulses Neurological: nl speech, nl strength Skin: nl turgor Results Result Diagram: 10/06/1611 10/06/16710 Results 24 hrs Laboratory Tests Test 10/06/16 07:11 White Blood Count 4.3 L Red Blood Count 3.98 L Hemoglobin 11.4 L Hematocrit 34.6 L Mean Corpuscular Volume 86.9 Mean Corpuscular Hemoglobin 28.6 L Mean Corpuscular Hemoglobin Concent 32.9 Red Cell Distribution Width 19.4 H Platelet Count 114 L Mean Platelet Volume 9.6 Neutrophils % 52.4 Lymphocytes % 31.1 Monocytes % 10.7 Eosinophils % 4.9 Basophils % 0.7 Neutrophils # 2.2 Lymphocytes # 1.3 Monocytes # 0.5 Eosinophils # 0.2 Basophils # 0.0 Nucleated Red Blood Cells # 0.0 Sodium Level 141 Potassium Level 3.8 Chloride Level 99 Carbon Dioxide Level 27 Anion Gap 19 H Blood Urea Nitrogen 10 Creatinine 0.66 Glucose Level 100 Calcium Level 9.0 Medications Medications Current Medications Dextrose/Sodium Chloride (D5-1/2ns) 1,000 ml @ 100 mls/hr Q10H IV Last administered on 10/04/16 22:55; Admin Dose 100 MLS/HR; Start 10/03/16 at 07:10 Morphine Sulfate (morphine) 2 mg Q4H PRN IV SEVERE PAIN LEVEL 7-10 Last administered on 10/04/16 11:54; Admin Dose 2 MG; Start 10/03/16 at 07:30 Pantoprazole (Protonix Iv) 40 mg IV Last administered on 10/06/16 05:08 ; Admin Dose 40 MG; Start 10/03/16 at 09:00 Lorazepam 1 mg 1 mg Q1H PRN IV anxiety Last administered on 10/06/16 00:40; Admin Dose 1 MG; Start 10/03/16 at 07:30 Multivitamins/ Thiamine HCl/ Folic Acid/Sodium Chloride (Mvi Adult/ Vitamin B1/ Folic Acid/NS) 1,011.2 ml @ 125 mls/ hr DAILY@09 IVPB Last administered on 10:59; Admin Dose 125 MLS/HR; Start 10/04/16 at 09:00 Metoclopramide HCl (Reglan) 10 mg Q6H PRN IV nausea; Start 10/04/16 at 17:00 Senna (Senokot) 2 tab DAILY PO Last administered on 10/05/16 08:47; Admin Dose 2 TAB; Start 10/05/16 at 09:00 Magnesium Hydroxide (Milk Of Mag) 30 ml BID PRN PO CONSTIPATION Last administered on 10/06/16 05:16; Admin Dose 30 ML; Start 10/04/16 at 20:00 JUSTIN GALARZA NP Oct 06, 2016 08:56
[2016-10-06] MEDS: MULTIVITAMINS 10 ML, THIAMINE 100 MG, FOLIC ACID 1 MG in SOD CHLORIDE 0.9% 1,000 ML IVPB SCH (09:00)
[2016-10-06] MEDS: SENNA TAB PO SCH (09:12)
--- NOTE | 2016-10-06 14:49 | DS ---
Date/Time of Note Date/Time of Note DATE: 10/06/16 TIME: 14:45 Discharge Summary Admission/Discharge Info Admit Date/Time Oct 03, 2016 at 05:42 Discharge Date/Time Discharge Diagnosis 1. Hematemesis 2. Esophageal ulcer 3. Gastritis 4. Alcohol abuse 5. Anemia secondary to #1 6. Hypokalemia 7. Suspect, homeless status Patient Condition: Stable Consults 1. Dr. Jerilyn Lezama Hospital Course This is a 41-year-old male with history of anxiety as well as alcohol abuse who resides at a sober living facility who came to [facility] after reportedly vomiting a large amount of blood for the past few days. He did report that he had recently left his sober living and started to drink vodka in excess. He subsequently went to [facility] for further evaluation. He was reportedly having hematemesis. He was also noted to be anemic as well. He was seen by shipping associate as well. He did undergo EGD with findings of esophageal ulcer as well as gastritis. No H. pylori organism evidence of malignancy was seen in biopsy. Patient was otherwise optimized medically. He was placed on PPI medication and seen by geriatric social worker and advised for alcohol cessation. No need for transfusion of packed red blood cells was needed during the visit. He was otherwise optimized medically and we did monitor his electrolytes and replete them as needed. During his course of stay he did improve. Patient was seen by correctional case manager and set up for discharge back to sober living facility. On the day of discharge patient was in stable condition Discussed plan of care with Dr. Warren [facility] Active Scripts Folic Acid* (Folic Acid*) 1 Mg Tablet, 2 MG PO DAILY for 30 Days, TAB Prov:MYESHA PEREZ 10/05/16 Multivitamins* (Theragran*) 1 Tab Tab, 1 TAB PO DAILY for 30 Days, TAB Prov:REGDEIONRMYESHA 10/05/16 Lorazepam* (Lorazepam*) 0.5 Mg Tablet, 0.5 MG PO Q6 Y for ANXIETY, #10 TAB Prov:REGIDORMYESHA 10/05/16 Pantoprazole* (Protonix*) 40 Mg Tablet.dr 40 MG PO BID for 60 Days, TAB Prov:REGIDORMYESHA 10/05/16 Follow-up Plan CONDITION Patient Condition: Stable HOME CARE INSTRUCTIONS: Special Diet: REGULAR FOLLOW UP/APPOINTMENTS Follow-up Plan 1. Follow up with Dr. Jerilyn Lezama in one week Primary Care Provider Care Physician No Primary Time spent on discharge: > 30 minutes Pending Labs Laboratory Tests Test 10/06/16 07:11 White Blood Count 4.310^3/ul (4.8-10.8) Red Blood Count 3.9810^6/ul (4.70-6.10) Hemoglobin 11.4g/dl (14.0-18.0) Hematocrit 34.6% (42.0-52.0) Mean Corpuscular Volume 86.9fl (82.0-101.0) Mean Corpuscular Hemoglobin 28.6pg (29.0-33.0) Mean Corpuscular Hemoglobin Concent 32.9g/dl (32.0-37.0) Red Cell Distribution Width 19.4% (11.5-14.5) Platelet Count 87135^3/UL (140-415) Mean Platelet Volume 9.6fl (7.4-10.4) Neutrophils % 52.4% (39.0-77.0) Lymphocytes % 31.1% (15.0-51.0) Monocytes % 10.7% (0.0-11.0) Eosinophils % 4.9% (0.0-7.0) Basophils % 0.7% (0.0-2.0) Neutrophils # 2.210^3/ul (1.6-7.5) Lymphocytes # 1.310^3/ul (0.8-2.9) Monocytes # 0.510^3/ul (0.3-0.9) Eosinophils # 0.210^3/ul (0.0-0.5) Basophils # 0.010^3/ul (0.0-0.1) Nucleated Red Blood Cells # 0.010^3/ul (0.0-0.0) Sodium Level 141mmol/L (135-144) Potassium Level 3.8mmol/L (3.5-5.1) Chloride Level 99mmol/L (97-110) Carbon Dioxide Level 27mmol/L (21-31) Anion Gap 19 (8-16) Blood Urea Nitrogen 10mg/dl (7-20) Creatinine 0.66mg/dl (0.61-1.24) Glucose Level 100mg/dl (70-220) Calcium Level 9.0mg/dl (8.4-10.2) MYESHA PEREZ Oct 06, 2016 14:49
[2016-10-06] MEDS ORDERED: CALA180L2 TP (15:07)
--- NOTE | 2016-10-09 05:18 | GILP ---
DATE OF PROCEDURE: 10/04/2016 PROCEDURE: ESOPHAGOGASTRODUODENOSCOPY WITH BIOPSY HISTORY AND INDICATIONS: The patient being evaluated for hematemesis. PREMEDICATION: Monitored anesthesia care by anesthesiologist. INSTRUMENT USED: Olympus endoscope. TECHNIQUE: After informed consent, with the patient/relatives understanding the procedure, its indications, potential risks and complications, including but not limited to: allergic reaction, bleeding, perforation or infection, and after all pertinent questions were answered to the patients satisfaction, the patient/relatives signed witnessed informed consent. Following this, premedication was administered slowly IV push under careful cardiovascular and respiratory monitoring with pulse oximetry, automatic blood pressure and shelter monitor. Once the sedative effect was achieved the patient was place in the left lateral decubitus, the panendoscope was introduced and advanced under visual control. Careful examination of the upper gastrointestinal tract, both on insertion as well as withdrawal of the instrument disclosed the following findings: ESOPHAGUS: The distal esophagus showed the presence of 1 cm clean based esophageal ulcer with no stigmata of recent bleeding. Biopsies were obtained in limited fashion to rule out Hawkins's esophagus or other potential abnormalities. Moderate size hiatal hernia is present. STOMACH: Upon entrance to the stomach air was insufflated, the gastric justice distended normally. The mucosa of the fundus, body and antrum of the stomach was carefully examined and shows erythema and edema in the mucosa of a moderate degree. Biopsies were obtained to rule out H. pylori infection. PYLORUS: The pylorus appears patent and within normal limits, with no evidence of gastric outlet obstruction. DUODENUM: The duodenal mucosa was carefully examined in the duodenal bulb as well as the second portion of the duodenum and appears unremarkable with no evidence of duodenitis, ulcer or neoplasm. The instrument was then withdrawn, the patient tolerated the procedure well and was transfer out of the endoscopy suite awake, and in good condition to continue recovery under observation. IMPRESSION: 1. A 1 cm esophageal ulceration with no stigmata. Biopsies obtained. 2. Moderate size hiatal hernia. 3. Moderate gastritis, rule out Helicobacter pylori infection. Biopsies obtained. PLAN: The patient will be treated with PPI b.i.d. Pathology will be reviewed as soon as available. Abstinence will be critical to the patient's well being and will be re-emphasized. RECOMMENDATIONS: * Dictated By: Jerilyn Lezama MD /wilman/chandler /Document#: [id number]
== END 2016-10-06 16:30 | disposition home or self-care (01) | DRG 381 ==
LOC: E/R 02:56 → MS3 05:42 → MS4 18:50
PROVIDERS: ADMIT Internal Medicine; ATTEND Internal Medicine
PROC: 0DB68ZX Excision of Stomach, Via Natural or Artificial Opening Endoscopic, Diagnostic (ICD-10-PCS; 2016-10-04)
PROC: 0DB38ZX Excision of Lower Esophagus, Via Natural or Artificial Opening Endoscopic, Diagnostic (ICD-10-PCS; principal; 2016-10-04 19:00)
DX: K22.10 Ulcer of esophagus without bleeding (principal); E87.2 Acidosis; K92.0 Hematemesis; D62 Acute posthemorrhagic anemia; K29.70 Gastritis, unspecified, without bleeding; K44.9 Diaphragmatic hernia without obstruction or gangrene; E87.6 Hypokalemia; F41.9 Anxiety disorder, unspecified; F10.10 Alcohol abuse, uncomplicated; F12.90 Cannabis use, unspecified, uncomplicated; Z59.0 Homelessness
CPT/HCPCS: 36415; 71010; 80048; 80053; 81003; 83690; 83735; 84100; 84484; 85025; 85610; 85730; 86850; 86900; 86901; 88305; 88312; 88313; 93005; 96365; 96366; 96368; 96375; 96376; C9113; J0696; J2060; J2270; J2354; J2405; J2765; J3411; J7030; J7042